=== PATIENT | male | born 2000 | race Caucasian/White ===

== ENCOUNTER → 2024-01-14 12:22 | Outpatient (BNVA) | payer SELFPAY | PROVIDERS: Visit Provider Registered Nurse | DX: Z02.79 Encounter for issue of other medical certificate (principal) ==

== ENCOUNTER 2024-06-15 13:27 | Outpatient (AMB) | payer OTHER, SELFPAY ==
--- NOTE | 2024-06-14 17:33 | A.OFFVIS_ITS ---
Intake Visit Reasons: history of kidney stones Intake Note: New patient is present to establish care for ? history of kidney stones Any Urology Medications: None Antibiotic Allergy: None Blood Thinner: None Family History: Bladder Cancer? No Prostate Cancer? No Patient Symptoms: Patient states sometimes he has pain urinating and frequency. He also states he is experiencing left kidney pain Basting Marker Required: No Accompanied by: Self / Same As Patient Allergies No Known Allergies Allergy (Verified 06/15/24 13:41) HPI Comments Details: Choco is a 23 old white male presents complaining left-sided pain, he was seen in urgent care at which time urinalysis reported had oxalates in the urine. He denies prior kidney stones or family history of kidney stones. He denies blood in the urine. I have discussed further evaluation with renal ultrasound. Review of Systems Const All systems reviewed & are unremarkable except as noted in HPI and below Reports no additional complaints Eyes Reports no additional complaints ENT Reports no additional complaints Card Reports no additional complaints Resp Reports no additional complaints GI Reports no additional complaints Reports as per HPI Musc Reports no additional complaints Skin/Breast Reports system reviewed and no additional complaints, except as documented Neuro Reports no additional complaints Psych Reports no additional complaints Endo Reports no additional complaints Kishore/Lymph Reports no additional complaints Aller/Immun Reports no additional complaints Physical Exam Const General: healthy appearing, no acute distress and well developed Orientation/consciousness: patient oriented x3 HEENT Head: Yes normocephalic and Yes atraumatic Eyes Conjunctivae: conjunctivae normal Neck Neck: Yes normal visual inspection Chest Chest palpation & inspection: normal inspection of the chest Resp Effort & Inspection: normal respiratory effort GI Inspection: Yes normal to inspection Neuro General: patient oriented x3 Extrem General: No pedal edema Psych Appearance: grossly normal Affect: normal affect Results AMB Urinalysis, Automated UA Leukoctes 0 Jose/uL Last Edit by Ira Galaviz CMA on 06/15/24 13:47 UA Nitrite Negative Last Edit by Ira Galaviz CMA on 06/15/24 13:47 UA Urobilinogen 0.2 mg/dL Last Edit by Ira Galaviz CMA on 06/15/24 13:4 7 UA Protein 0 mg/dL Last Edit by Ira Galaviz CMA on 06/15/24 13:47 UA pH 7.0 Last Edit by Ira Galaviz CMA on 06/15/24 13:47 UA Blood 0 Jerry/uL Last Edit by Ira Galaviz, CALENDER INSPECTOR on 06/15/24 13:47 UA Specific [place] 1.015 Last Edit by Ira Galaviz, ELANA on 06/15/24 13: 47 UA Ketone Negative Last Edit by Ira Galaviz, ELANA on 06/15/24 13:47 UA Bilirubin 0 mg/dL Last Edit by Ira Galaviz, CALENDER INSPECTOR on 06/15/24 13:47 UA Glucose 0 mg/dL Last Edit by Ira Galaviz, CALENDER INSPECTOR on 06/15/24 13:47 Results Reviewed Results Reviewed: Laboratory Last Values Urine pH (Auto) 7.0 06/15/24 13:32 Specific [place] (Auto) 1.015 06/15/24 13:32 Urine Protein (Auto) 0 mg/dL 06/15/24 13:32 Glucose (UA)(Auto) 0 mg/dL 06/15/24 13:32 Urine Ketones (Auto) Negative 06/15/24 13:32 Urine Blood (Auto) 0 Jerry/uL 06/15/24 13:32 Urine Nitrite (Auto) Negative 06/15/24 13:32 Urine Bilirubin (Auto) 0 mg/dL 06/15/24 13:32 Urine Urobilinogen (Auto) 0.2 mg/dL 06/15/24 13:32 Leukocyte Esterase (Auto) 0 Jose/uL 06/15/24 13:32 Assessment & Plan Assessment & Plan (1) Left flank pain: Code(s): R10.9 - Unspecified abdominal pain Category: Medical (2) Oxaluria: Code(s): E72.53 - Primary hyperoxaluria Category: Medical Plan Renal ultrasound. Will discuss results. Encouraged to increase fluid intake. Orders: Orders AMB Urinalysis Automated Today Z13.9 - Encounter for screening, unspecified Patient Instructions: The patient had an opportunity to ask questions regarding treatment plan. The patient expressed understanding and agreement with the above treatment plan. The patient is aware they should contact our office by phone for worsening of their current condition or the appearance of new symptoms. Compliance is encouraged with any medications and followup testing that is ordered. It is a privilege to be allowed the opportunity to participate in the urologic care of your patient. If you have any questions or concerns regarding treatment for the above conditions please do not hesitate to contact me. The office telephone contact is [phone]. This note is constructed in part using voice recognition software. While every effort has been made to ensure accuracy cuprous chloride operator errors may have been included. Yours sincerely, April Arnold MD Coding Level of Care Code New Pt Level 3 (81397) Diagnoses Left flank pain R10.9 Oxaluria E72.53
== END 2024-06-15 14:01 | disposition home or self-care (01) ==
PROVIDERS: Visit Provider Urology
DX: R10.9 Unspecified abdominal pain (principal); E72.53 Primary hyperoxaluria; Z13.9 Encounter for screening, unspecified
CPT/HCPCS: 99203

== ENCOUNTER → 2024-06-15 13:27 | Outpatient (BNVA) | payer OTHER, SELFPAY | PROVIDERS: Visit Provider Urology | DX: E72.53 Primary hyperoxaluria (principal); R10.9 Unspecified abdominal pain | CPT/HCPCS: 81003; 99202 ==

== ENCOUNTER 2024-07-16 10:23 | Outpatient (REF) | payer OTHER, SELFPAY ==
--- NOTE | ~2024-07-16 | US_ITS ---
CLINICAL HISTORY: R10.9 - Unspecified abdominal pain US Renal Comparison: None Findings: Right kidney normal size and echotexture, 9.4 cm length. Left kidney normal size and echotexture, 9.7 cm length. No collecting system dilatation of either kidney. Normal color Doppler. IMPRESSION: 1. Normal kidneys. This document has been electronically signed by: Sulaiman Iglesias MD on 07/16/2024 13:18:29
== END 2024-07-16 10:24 | disposition home or self-care (01) ==
LOC: HO.HMGCX 10:23
PROVIDERS: Visit Provider Urology
DX: R10.9 Unspecified abdominal pain (principal)
CPT/HCPCS: 76775

== ENCOUNTER → 2024-07-16 10:26 | Outpatient (BNV) | payer OTHER, SELFPAY | PROVIDERS: Visit Provider Radiology Vascular & Interventional Radiology | DX: R10.9 Unspecified abdominal pain (principal) | CPT/HCPCS: 76775 ==

== ENCOUNTER 2024-07-27 08:35 | Outpatient (AMB) | payer OTHER, SELFPAY ==
--- NOTE | 2024-07-27 08:37 | A.OFFVIS_ITS ---
Intake Visit Reasons: 6w/US Intake Note: Patient is Present for Telephone Follow Up Ultrasound Results Urology Med: None Antibiotic Allergy: None Blood Thinner: None Station Worker Required: No Accompanied by: Self / Same As Patient Allergies No Known Allergies Allergy (Verified 07/27/24 08:49) Medication List - Last Reconciled 07/27/24 by April Arnold MD No Known Home Meds HPI Comments Details: 07/27/24--Choco was initially seen on 06/14/2023 due to complaints of left-sided pain. He was seen in urgent care and reportedly had oxalates in the urine. He was sent for renal ultrasound. I have reviewed renal ultrasound 07/16/2024 kidneys are within normal limits negative for urolithiasis or parenchymal lesions. Patient instructed on importance of adequate fluid hydration. Discussed left-sided back pain likely musculoskeletal related. Follow-up urology p.r.n. 06/14/24-Choco is a 23 old white male presents complaining left-sided pain, he was seen in urgent care at which time urinalysis reported had oxalates in the urine. He denies prior kidney stones or family history of kidney stones. He denies blood in the urine. I have discussed further evaluation with renal ultrasound. Review of Systems Const All systems reviewed & are unremarkable except as noted in HPI and below Reports no additional complaints Eyes Reports no additional complaints ENT Reports no additional complaints Card Reports no additional complaints Resp Reports no additional complaints GI Reports no additional complaints Reports as per HPI Musc Reports no additional complaints Skin/Breast Reports system reviewed and no additional complaints, except as documented Neuro Reports no additional complaints Psych Reports no additional complaints Endo Reports no additional complaints Kishore/Lymph Reports no additional complaints Aller/Immun Reports no additional complaints Telehealth Telehealth Telehealth Platform: [facility] Location of provider rendering services: practice address Location of patient: address on file Patient Identification confirmed using: Name, : Yes Telehealth method: voice only Patient verbally consented to treatment: Yes Patient verbally consented to billing insurance company: Yes Patient informed of any privacy concerns related to visit: Yes Minutes spent on Phone/Video with Pt.: 13 Results Reviewed Results Reviewed: Date of Service: 07/16/24 US Renal Comparison: None Findings: Right kidney normal size and echotexture, 9.4 cm length. Left kidney normal size and echotexture, 9.7 cm length. No collecting system dilatation of either kidney. Normal color Doppler. IMPRESSION: 1. Normal kidneys. Assessment & Plan Assessment & Plan (1) Oxaluria: Code(s): E72.53 - Primary hyperoxaluria Category: Medical (2) Left-sided back pain: Code(s): M54.9 - Dorsalgia, unspecified Category: Medical Plan I have reviewed renal ultrasound 07/16/2024 kidneys are within normal limits ne gative for urolithiasis or parenchymal lesions. Patient instructed on importance of adequate fluid hydration. Discussed left-sided back pain likely musculoskeletal related. Follow-up urology p.r.n. Patient Instructions: The patient had an opportunity to ask questions regarding treatment plan. The patient expressed understanding and agreement with the above treatment plan. The patient is aware they should contact our office by phone for worsening of their current condition or the appearance of new symptoms. Compliance is e ncouraged with any medications and followup testing that is ordered. It is a privilege to be allowed the opportunity to participate in the urologic care of your patient. If you have any questions or concerns regarding treatment for the above conditions please do not hesitate to contact me. The office telephone contact is [phone]. This note is constructed in part using voice recognition software. While every effort has been made to ensure accuracy senior clinical project manager errors may have been included. Yours sincerely, April Arnold MD Coding Level of Care Code Tele Est Pt Level 3 (71092) Diagnoses Oxaluria E72.53 Left-sided back pain M54.9
== END 2024-07-27 09:38 | disposition home or self-care (01) ==
LOC: HO.HUSH 08:35
PROVIDERS: Visit Provider Urology
DX: E72.53 Primary hyperoxaluria (principal); M54.9 Dorsalgia, unspecified
CPT/HCPCS: 99213